=== PATIENT | female | born 1965 | race Caucasian/White ===

== ENCOUNTER 2021-07-07 10:47 | Outpatient (CLI) | payer OTHER ==
[~2021-07-07 10:47] MED LIST: ASA-EC81 MG; AVAPRO300 MG; FENOFIBRATE145 MG; GLIMEPIRIDE2 MG; GLUMETZA1000 MG
== END 2021-07-07 10:53 | disposition home or self-care (01) ==
LOC: SONOGRAMA 10:47
PROVIDERS: ATTEND Pathology Anatomic Pathology & Clinical Pathology
DX: E04.2 Nontoxic multinodular goiter (principal)